=== PATIENT | female | born 1950 | race Caucasian/White ===

== ENCOUNTER 2022-01-20 14:13 | Emergency (ER) | payer MEDICARE ==
[2022-01-20] MEDS ORDERED: Albuterol/Ipratropium 3.0-0.5 MG/3 ML Neb Soln NEB ONE (15:26)
== END 2022-01-20 16:42 | disposition home or self-care (01) ==
LOC: JP.ED 14:13
DX: J45.40 Moderate persistent asthma, uncomplicated (principal); I10 Essential (primary) hypertension; K21.9 Gastro-esophageal reflux disease without esophagitis; E78.00 Pure hypercholesterolemia, unspecified; Z79.899 Other long term (current) drug therapy
CPT/HCPCS: 71046; 71046-26; 94640; 99285; J7620

== ENCOUNTER 2022-01-22 15:38 | Emergency (ER) | payer MEDICARE ==
[2022-01-22] MEDS ORDERED: Sodium Chloride 0.9% 10 ML Syringe FLUSH PRN (16:46)
[2022-01-22] MEDS ORDERED: Lactated Ringers 500 ML IV ONE (16:46)
[2022-01-22] MEDS ORDERED: Albuterol/Ipratropium 3.0-0.5 MG/3 ML Neb Soln NEB ONE (16:49)
[2022-01-22] MEDS ORDERED: methylPREDNISolone Sodium Succinate 40 MG/1 ML SDV IVPUSH ONE (16:49)
[2022-01-22 17:46] LABS: ESTIMATED GFR 27 mL/min (>60); TROPONIN I HIGH SENSITIVITY 8.8 pg/mL (<=60.3)
== END 2022-01-22 19:12 ==
LOC: JP.ED 15:38
DX: J10.00 Influenza due to other identified influenza virus with unspecified type of pneumonia (principal); R09.02 Hypoxemia; I25.10 Atherosclerotic heart disease of native coronary artery without angina pectoris; E78.00 Pure hypercholesterolemia, unspecified; I10 Essential (primary) hypertension; I25.2 Old myocardial infarction; Z79.82 Long term (current) use of aspirin; Z86.16 Personal history of COVID-19; Z79.899 Other long term (current) drug therapy; Z20.822 Contact with and (suspected) exposure to COVID-19
CPT/HCPCS: 36415; 71046; 80053; 83605; 84145; 84484; 85025; 86140; 93005; 94640; 96374; 99285; J2920; J3490; J7120; U0002; J7620